=== PATIENT | male | born 1965 | race Caucasian/White ===

== ENCOUNTER 2019-03-02 03:01 | Day surgery (SDC) | payer SELFPAY ==
--- NOTE | 2019-03-02 03:04 | ER Report ---
History and Physical Time Seen By MD: 03:01 SHILO/PAULA CHIEF COMPLAINT: Abdominal pain and distention HISTORY OF PRESENT ILLNESS: 53-year-old male presents ambulatory to the ER complaining of abdominal distention and pain primarily in the upper abdomen, spreading to the left lower quadrant since morning. Patient thinks he has a bowel obstruction. Patient has no previous abdominal surgeries or previous bowel problems. His father had a history of malignant polyps and a 6 feet of his colon removed. Patient notes no blood in his stool. Patient denies diarrhea. Patient notes constipation. He's had no bowel movement for several d ays. Patient denies history of inflammatory bowel disease. Patient denies fever or chills. REVIEW OF SYSTEMS: Respiratory: No cough, no dyspnea. Cardiovascular: No chest pain, no palpitations. Gastrointestinal: As above Musculoskeletal: No back pain. Allergies: Coded Allergies: No Known Drug Allergies (Unverified , 03/02/19) Home Meds Reported Medications Ibuprofen (IBUPROFEN) 800 Mg Tablet, 1 TAB PO TID PRN for PAIN, TAB 03/02/19 Famotidine (PEPCID) 20 Mg Tablet, 20 MG PO BID, #10 TAB 03/02/19 Ciprofloxacin Hcl 500 Mg Tab (CIPRO 500 MG TAB) 500 Mg Tablet, 500 MG PO BID, #20 TAB 03/02/19 Acetaminophen With Codeine # 3 (TYLENOL WITH CODEINE #3 TABLET) 1 Each Tablet, 1 EACH PO Q4-6H PRN for PAIN, TAB 03/02/19 Phenazopyridine Hcl (PHENAZOPYRIDINE HCL) 200 Mg Tablet, 200 MG PO TID, #20 TAB 03/02/19 Reviewed Nurses Notes: Yes Old Medical Records Reviewed: Yes Constitutional Vital Sign - Last 24 Hours 03/02/19 03/02/19 03/02/19 03/02/19 03:01 03:07 03:08 03:31 Temp 97.8 Pulse ??? 67 66 Resp 16 B/P (MAP) 138/100 138/100 (113) Pulse Ox 92 91 O2 Delivery Room Air 03/02/19 03/02/19 03/02/19 03/02/19 03:37 03:46 04:00 04:01 Pulse 79 85 B/P (MAP) 136/91 (106) 132/82 (99) Pulse Ox 90 91 7/6/19 03/02/19 03/02/19 03/02/19 04:16 04:30 04:31 04:46 Pulse 69 74 70 B/P (MAP) 123/75 (91) Pulse Ox 93 92 91 03/02/19 03/02/19 03/02/19 03/02/19 04:51 05:06 05:21 05:22 Pulse 87 81 83 B/P (MAP) 129/84 (99) Pulse Ox 93 92 92 03/02/19 03/02/19 03/02/19 03/02/19 05:36 05:51 06:00 06:06 Pulse 88 91 76 B/P (MAP) 153/109 (124) Pulse Ox 92 92 91 03/02/19 06:21 Pulse 76 Pulse Ox 91 Physical Exam General Appearance: The patient is alert, has no immediate need for airway protection and no current signs of toxicity. Vital signs stable, afebrile, pulse ox normal HEENT: Pupils equal and round no injection. Oropharynx without redness or exudate Respiratory: Chest is non tender, lungs are clear to auscultation. Cardiac: regular rate and rhythm Gastrointestinal: Abdomen is firm, grossly distended, non tender, no masses, bowel sounds decreased. Musculoskeletal: Neck: Neck is supple and non tender. No lymphadenopathy Extremities have full range of motion and are non tender. Skin: No rashes or lesions. DIFFERENTIAL DIAGNOSIS: After history and physical exam differential diagnosis was considered for abdominal pain including but not limited to appendicitis, cholecystitis, gastritis and urinary tract infection. Medical Decision Making Data Points Result Diagram: 03/02/19 0330 03/02/19 0330 Laboratory Hematology Test 03/02/19 03:30 03/02/19 04:22 Red Blood Count 4.61 M/uL (4.00-5.60) Mean Corpuscular Volume 90.2 fL (80.0-96.0) Mean Corpuscular Hemoglobin 30.9 pg (26.0-33.0) Mean Corpuscular Hemoglobin Concent 34.3 g/dL (32.0-36.0) Red Cell Distribution Width 13.9 % (11.5-14.5) Mean Platelet Volume 6.9 fL (7.2-11.1) Neutrophils (%) (Auto) 81.7 % (39.4-72.5) Lymphocytes (%) (Auto) 10.4 % (17.6-49.6) Monocytes (%) (Auto) 7.2 % (4.1-12.4) Eosinophils (%) (Auto) 0.3 % (0.4-6.7) Basophils (%) (Auto) 0.4 % (0.3-1.4) Nucleated RBC Relative Count (auto) 0.0 /100WBC Neutrophils # (Auto) 11.3 K/uL (2.0-7.4) Lymphocytes # (Auto) 1.4 K/uL (1.3-3.6) Monocytes # (Auto) 1.0 K/uL (0.3-1.0) Eosinophils # (Auto) 0.0 K/uL (0.0-0.5) Basophils # (Auto) 0.1 K/uL (0.0-0.1) Nucleated RBC Absolute Count (auto) 0.00 K/uL Sodium Level 132 mmol/L (137-145) Potassium Level 3.5 mmol/L (3.5-5.0) Chloride Level 96 mmol/L (98-107) Carbon Dioxide Level 23 mmol/L (22-30) Blood Urea Nitrogen 23 mg/dl (9-21) Creatinine 1.30 mg/dl (0.66-1.25) Glomerular Filtration Rate Calc 58.0 Random Glucose 120 mg/dl (75-110) Calcium Level 9.1 mg/dl (8.4-10.2) Total Bilirubin 1.6 mg/dl (0.2-1.3) Aspartate Amino Transf (AST/SGOT) 40 U/L (0-35) Alanine Aminotransferase (ALT/SGPT) 49 U/L (0-56) Alkaline Phosphatase 95 U/L (0-126) Total Protein 6.7 g/dl (6.3-8.2) Albumin 3.9 g/dl (3.5-5.0) Amylase Level 86 U/L (0-110) Lipase 27 U/L (23-300) Urine Color Yellow Urine Clarity Clear Urine pH 5.0 pH (4.8-9.5) Urine Specific [place] 1.020 Urine Protein Negative mg/dL (NEGATIVE) Urine Glucose (UA) Negative mg/dL (NEGATIVE) Urine Ketones Negative mg/dL (NEGATIVE) Urine Blood Negative (NEGATIVE) Urine Nitrite Negative (NEGATIVE) Urine Bilirubin Negative (NEGATIVE) Urine Urobilinogen Negative mg/dL (0.2-1.9) Urine Leukocyte Esterase Negative (NEGATIVE) Urine RBC <1 /HPF (0-2/HPF) Urine WBC 1 /HPF (0-5/HPF) Urine Squamous Epithelial Cells None /LPF (</=FEW) Urine Bacteria Negative /HPF (NONE-FEW) Urine Mucus None /HPF (NONE-FEW) Chemistry Test 03/02/19 03:30 03/02/19 04:22 White Blood Count 13.9 k/uL (4.5-11.0) Red Blood Count 4.61 M/uL (4.00-5.60) Hemoglobin 14.3 g/dL (14.0-18.0) Hematocrit 41.6 % (42.0-52.0) Mean Corpuscular Volume 90.2 fL (80.0-96.0) Mean Corpuscular Hemoglobin 30.9 pg (26.0-33.0) Mean Corpuscular Hemoglobin Concent 34.3 g/dL (32.0-36.0) Red Cell Distribution Width 13.9 % (11.5-14.5) Platelet Count 268 K/uL (150-450) Mean Platelet Volume 6.9 fL (7.2-11.1) Neutrophils (%) (Auto) 81.7 % (39.4-72.5) Lymphocytes (%) (Auto) 10.4 % (17.6-49.6) Monocytes (%) (Auto) 7.2 % (4.1-12.4) Eosinophils (%) (Auto) 0.3 % (0.4-6.7) Basophils (%) (Auto) 0.4 % (0.3-1.4) Nucleated RBC Relative Count (auto) 0.0 /100WBC Neutrophils # (Auto) 11.3 K/uL (2.0-7.4) Lymphocytes # (Auto) 1.4 K/uL (1.3-3.6) Monocytes # (Auto) 1.0 K/uL (0.3-1.0) Eosinophils # (Auto) 0.0 K/uL (0.0-0.5) Basophils # (Auto) 0.1 K/uL (0.0-0.1) Nucleated RBC Absolute Count (auto) 0.00 K/uL Glomerular Filtration Rate Calc 58.0 Calcium Level 9.1 mg/dl (8.4-10.2) Total Bilirubin 1.6 mg/dl (0.2-1.3) Aspartate Amino Transf (AST/SGOT) 40 U/L (0-35) Alanine Aminotransferase (ALT/SGPT) 49 U/L (0-56) Alkaline Phosphatase 95 U/L (0-126) Total Protein 6.7 g/dl (6.3-8.2) Albumin 3.9 g/dl (3.5-5.0) Amylase Level 86 U/L (0-110) Lipase 27 U/L (23-300) Urine Color Yellow Urine Clarity Clear Urine pH 5.0 pH (4.8-9.5) Urine Specific [place] 1.020 Urine Protein Negative mg/dL (NEGATIVE) Urine Glucose (UA) Negative mg/dL (NEGATIVE) Urine Ketones Negative mg/dL (NEGATIVE) Urine Blood Negative (NEGATIVE) Urine Nitrite Negative (NEGATIVE) Urine Bilirubin Negative (NEGATIVE) Urine Urobilinogen Negative mg/dL (0.2-1.9) Urine Leukocyte Esterase Negative (NEGATIVE) Urine RBC <1 /HPF (0-2/HPF) Urine WBC 1 /HPF (0-5/HPF) Urine Squamous Epithelial Cells None /LPF (</=FEW) Urine Bacteria Negative /HPF (NONE-FEW) Urine Mucus None /HPF (NONE-FEW) Urinalysis Test 03/02/19 04:22 Urine Color Yellow Urine Clarity Clear Urine pH 5.0 pH (4.8-9.5) Urine Specific [place] 1.020 Urine Protein Negative mg/dL (NEGATIVE) Urine Glucose (UA) Negative mg/dL (NEGATIVE) Urine Ketones Negative mg/dL (NEGATIVE) Urine Blood Negative (NEGATIVE) Urine Nitrite Negative (NEGATIVE) Urine Bilirubin Negative (NEGATIVE) Urine Urobilinogen Negative mg/dL (0.2-1.9) Urine Leukocyte Esterase Negative (NEGATIVE) Urine RBC <1 /HPF (0-2/HPF) Urine WBC 1 /HPF (0-5/HPF) Urine Squamous Epithelial Cells None /LPF (</=FEW) Urine Bacteria Negative /HPF (NONE-FEW) Urine Mucus None /HPF (NONE-FEW) EKG/Imaging Imaging Results: CT scan of the abdomen and pelvis with IV contrast was obtained. The results of the study are CT of the abdomen and pelvis with contrast: Indication: Abdominal pain and distention. Technique: Helical CT was performed through the abdomen and pelvis following IV contrast enhancement with 75 cc of Isovue-370. Multiplanar reconstructions are reviewed. One of the following dose optimization techniques was utilized in the perfo rmance of this exam: Automated exposure control; adjustment of the mA and/or kV according to the patient's size; or use of an iterative reconstruction technique. Specific details can be referenced in the facility's radiology CT exam operational policy. Comparison: None available. Lower lung mejia: There is minimal linear atelectasis at the bases. No consolidation or pleural effusion is identified. Liver: Normal in size, shape, and density. The venous structures appear unremarkable. Gallbladder/biliary tree: The gallbladder is normal in size and homogeneous in density. The bile ducts are not dilated. Pancreas: Normal in size, shape, and density. Spleen: Normal in size, shape, and density. Adrenal glands: Within normal limits. Kidneys/urinary bladder: There is a 3 mm obstructing calculus in the distal left ureter. There is also a 4 mm nonobstructing calculus in the left kidney. There is mild dilatation of the left ureter and intrarenal collecting structures. However, there is a moderate amount of fluid around the left kidney and left ureter, consistent with calyceal rupture. The left kidney is otherwise unremarkable. The right kidney and ureter appear normal. There are no signs of obstruction on the right. The bladder lumen appears homogeneous and unremarkable. Intestinal structures: There is moderate amount of stool throughout the colon. There are no definite signs of intestinal obstruction or focal inflammatory changes. Pelvis: The prostate appears mildly enlarged. Otherwise unremarkable. Aorta and vascular structures: There is mild atherosclerotic calcification in the aorta. There is no evidence of aneurysm. Ascites or fluid collections: No evidence of intraperitoneal fluid. Skeletal structures: There are mild degenerative changes in the spine. No acute skeletal deformity is clearly identified. Impression: There is a 3 mm obstructing calculus in the distal left ureter. There is mild dilatation of the left ureter and intrarenal collecting structures. However, there is a moderate amount of fluid around the left kidney and left ureter, consistent with calyceal rupture. The study was read by the radiologist. I viewed the images myself on the PACS system. ED Course/Re-evaluation Clinical Indication for ER IV: Hydration, IV Access ED Course Patient was admitted to an examination room. H&P was done. The differential diagnosis was considered. Patient with abdominal distention. He notes no fever, chills, no dysuria, no hematuria. Patient never had any abdominal surgery. Patient thinks he is constipation or bowel obstruction. Patient has been passing some gas. Patient notes no fever or chills. Peripheral IV was established. Patient was medicated with Zofran and fentanyl. He was sent for CT with contrast. His laboratory studies return. Elevated white blood cell count mildly elevated BUN/creatinine. His sodium is 132. A CT scan shows a lot of fat stranding around the left kidney. Radiology is calling a calyceal rupture. There is a 3 mm stone at the left UVJ. 03/02/2019 5:08:10 am case discussed with Dr. Smith urologist on-call, who ad vises the patient needs to go to the OR for stent placement and removal of the stone to depressurize his kidney. Decision to Disposition Date: Mar 02, 2019 Decision to Disposition Time: 04:47 Depart Departure Latest Vital Signs Vital Signs Date Time Temp Pulse Resp B/P (MAP) Pulse Ox O2 Delivery O2 Flow Rate FiO2 03/02/19 06:21 76 91 03/02/19 06:00 153/109 (124) 03/02/19 03:07 97.8 16 Room Air Impression: Primary Impression: Left ureteral calculus Additional Impression: Dilation of renal maren Condition: Improved Disposition: ADMIT FROM ER TO OR Problem Qualifiers FLACA MA DO Mar 02, 2019 03:04
[2019-03-02] MEDS ORDERED: NS(*) 0.9% 1000 ML BAG 1,000 ML IV ONE (03:18)
[2019-03-02] MEDS ORDERED: fentaNYL CITR 100 MCG/2 ML AMP IVP ONE (03:20)
[2019-03-02] MEDS ORDERED: ONDANSETRON 4 MG/2 ML VIAL IVP ONE (03:20)
[2019-03-02 03:49] LABS: PLATELET COUNT, AUTOMATED 268 K/uL (150-450)
[2019-03-02] MEDS ORDERED: IOPAMIDOL 76% 100 ML INFUS BTL 100 ML ONE (03:51)
--- NOTE | 2019-03-02 04:45 | RADIOLOGY IMAGING REPORT ---
FACILITY: [facility] [place] PATIENT NAME: Brian Weiner : 1965 MR: [id number] V: [id number] EXAM DATE: ORDERING PHYSICIAN: FLACA MA TECHNOLOGIST: Location: [facility] Patient: Brian Weiner : 1965 Visit/Account:[id number] Date of Sevice: 03/02/2019 CT of the abdomen and pelvis with contrast: Indication: Abdominal pain and distention. Technique: Helical CT was performed through the abdomen and pelvis following IV contrast enhancement with 75 cc of Isovue-370. Multiplanar reconstructions are reviewed. One of the following dose optimization techniques was utilized in the performance of this exam: Autom ated exposure control; adjustment of the mA and/or kV according to the patient's size; or use of an i terative reconstruction technique. Specific details can be referenced in the facility's radiology CT exam operational policy. Comparison: None available. Lower lung mejia: There is minimal linear atelectasis at the bases. No consolidation or pleural effu sophia is identified. Liver: Normal in size, shape, and density. The venous structures appear unremarkable. Gallbladder/biliary tree: The gallbladder is normal in size and homogeneous in density. The bile duct s are not dilated. Pancreas: Normal in size, shape, and density. Spleen: Normal in size, shape, and density. Adrenal glands: Within normal limits. Kidneys/urinary bladder: There is a 3 mm obstructing calculus in the distal left ureter. There is als o a 4 mm nonobstructing calculus in the left kidney. There is mild dilatation of the left ureter and intrarenal collecting structures. However, there is a moderate amount of fluid around the left kidney and left ureter, consistent with calyceal rupture. The left kidney is otherwise unremarkable. The right kidney and ureter appear normal. There are no signs of obstruction on the right. The bladder lumen appears homogeneous and unremarkable. Intestinal structures: There is moderate amount of stool throughout the colon. There are no definite signs of intestinal obstruction or focal inflammatory changes. Pelvis: The prostate appears mildly enlarged. Otherwise unremarkable. Aorta and vascular structures: There is mild atherosclerotic calcification in the aorta. There is no evidence of aneurysm. Ascites or fluid collections: No evidence of intraperitoneal fluid. Skeletal structures: There are mild degenerative changes in the spine. No acute skeletal deformity is clearly identified. Impression: There is a 3 mm obstructing calculus in the distal left ureter. There is mild dilatation of the left ureter and intrarenal collecting structures. However, there is a moderate amount of fluid around the left kidney and left ureter, consistent with calyceal rupture. Report Dictated By: Mario Alberto Palumbo MD at 03/02/2019 4:27 AM Report E-Signed By: Mario Alberto Palumbo MD at 03/02/2019 4:39 AM WSN:[id number]
[2019-03-02] MEDS ORDERED: FAMOTIDINE(*) 20MG/50ML PREMIX 50 ML IVPB ONE (06:18)
[2019-03-02] MEDS ORDERED: NORMOSOL R SOLN(*) 1000 ML BAG 1,000 ML IV ONE (06:18)
[2019-03-02] MEDS ORDERED: fentaNYL CITR 250 MCG/5 ML AMP ONE (07:16)
[2019-03-02] MEDS ORDERED: DEXAMETHASONE SOD PHOS 10MG/ML ONE (07:17)
[2019-03-02] MEDS ORDERED: ONDANSETRON 4 MG/2 ML VIAL ONE (07:17)
[2019-03-02] MEDS ORDERED: LIDOCAINE MPF 1% 5 ML VIAL ONE (07:17)
[2019-03-02] MEDS ORDERED: PROPOFOL EMUL(*) 10MG/ML 20 ML 20 ML ONE (07:17)
[2019-03-02] MEDS ORDERED: KETAMINE HCL-NS 50 MG/5 ML SYR ONE (07:18)
[2019-03-02] MEDS ORDERED: ceFAZolin 1 GM VIAL ONE (07:24)
[2019-03-02] MEDS ORDERED: KETOROLAC 30 MG/ML VIAL ONE (08:01)
[2019-03-02] MEDS ORDERED: PHEN200T32 PO (08:46)
[2019-03-02] MEDS ORDERED: ACET-3017 PO (08:46)
[2019-03-02] MEDS ORDERED: FAMO20TA28 PO (08:47)
[2019-03-02] MEDS ORDERED: CIPR-344 PO (08:47)
[2019-03-02] MEDS ORDERED: IBUP800T37 PO (08:48)
[2019-03-02 09:15] VITALS: BP 129/92
[2019-03-02 09:30] VITALS: BP 133/91
[2019-03-02 09:37] VITALS: BP 129/96
[2019-03-02 09:38] VITALS: BP 130/91
--- NOTE | 2019-03-02 09:40 | RADIOLOGY IMAGING REPORT ---
[place]AC[place] [facility] [place]IENT NAME: Brian Weiner : 1965 MR: [id number] V: [id number] EXAM DATE: ORDERING PHYSICIAN: CHANTEL SEAMAN TECHNOLOGIST: Location: [facility] Patient: Brian Weiner : 1965 Visit/Account:[id number] Date of Sevice: 03/02/2019 ADDENDUM #1 ADDENDUM: Fluoroscopy time: 0.11 minutes. 13 images. Report Dictated By: Narayan Colón MD at 03/02/2019 10:51 AM Report E-Signed By: Narayan Colón MD at 03/02/2019 10:52 AM ORIGINAL REPORT Retrograde urethrocystography images Indication: Left-sided kidney stone and stent placement Comparison: CT dated March 02, 2019. Findings: Multiple fluoroscopic images provided for review. There is opacification of the left ureter with active extravasation of contrast adjacent to the dista l left renal pelvis/proximal ureter Correlate with findings at time of imaging. IMPRESSION: 1. Fluoroscopic images of retrograde urethrocystography as above. Report Dictated By: Narayan Colón MD at 03/02/2019 8:31 AM Report E-Signed By: Narayan Colón MD at 03/02/2019 9:34 AM WSN:[id number]
--- NOTE | 2019-03-02 09:51 | NUR ---
0912 MOVED TO PHASE 2 CHARTING, NO PHYSICAL TRANSFER, ASSESSMENT UNREMARKABLE 929 VSS 0937 ORTHOSTATICS DONE, STABLE, DENIES DIZZINESS, UP TO VOID, STEADY ON FEET, NOTHING CAUGHT IN STRAINER 0945 BACK TO BED TO CONTINUE RESTING, DECLINES FOOD AT THIS TIME. SATES FLANK PAIN FROM BEFORE SURGERY RELIEVED
--- NOTE | 2019-03-02 10:29 | NUR ---
1010 PT READY TO DRESS, STEADY ON FEET 1015 REASSESSED, UNREMARKABLE, IV OUT, PRESSURE DRESSING APPLIED 1020 OUT TO CAR ON FOOT ALONG WITH PARTNER JESSA AND Je CRISTINA RN NO NEW QUESTIONS REGARDING D/C INSTRUCTIONS. PT PLANS TO RETURN MONDAY FOR ESWL PROCEDURE WITH DR. SEAMAN. ALL BELONGINGS WITH PT
--- NOTE | 2019-03-02 22:23 | OPERATIVE REPORT 1 ---
EVENT DATE: March 02, 2019 SURGEON: Placido Smith MD ANESTHESIOLOGIST: Jimmy Vincent MD ANESTHESIA: General PREOPERATIVE DIAGNOSES 1. Left ureteral lithiasis with pyelotubular backflow. 2. Severe ureterorenal colic. 3. Nausea and vomiting. 4. Left renal lithiasis. POSTOPERATIVE DIAGNOSES 1. Left ureteral lithiasis with pyelotubular backflow. 2. Severe ureterorenal colic. 3. Nausea and vomiting. 4. Left renal lithiasis. PROCEDURES PERFORMED 1. Cystourethroscopy. 2. Multiple left ureteral pyelograms. 3. Attempted extraction of left ureteral stone. 4. Manipulation, left ureteral stone. 5. Placement of left ureteral stent 4.8 x 28 cm PercuFlex Plus. DESCRIPTION OF PROCEDURE Patient was prepped and draped in the extended lithotomy position. The 21 panendoscope admitted through the urethra into the bladder. The urethra was normal. Prostate was normal. Bladder was normal and showed 2 to 3+ trabeculation. Trigone and ureteral orifices were normal. There was no inflammation about the left ureteral orifice. No stones were visible in the bladder. An 8 cone tip was placed in the left ureteral orifice, but only would allow approximately one half of the tip of the catheter to be introduced into the orifice. Contrast was introduced and passed up the left collecting system. The x-ray showed evidence of the pyelotubular backflow and leakage of urine. Attempt to pass the extractor was unsuccessful. The access catheter was placed and then the 0.038 guidewire. Attempts to pass the 6-Portuguese x 26 cm PercuFlex Plus was unsuccessful. The 4.8 x 28 cm PercuFlex catheter passed up the left collecting system without any difficulty. The x-ray confirmed full curl in the kidney as well as the bladder. At conclusion of the procedure, no stones were visible in the bladder. After the additional ureteral pyelograms, there was marked efflux of carlos-type urine with some bloody matter particles passing through the left ureteral orifice. Patient tolerated the procedure satisfactorily and returned to the recovery room in satisfactory condition. The bladder was drained at conclusion of the procedure. This is a 53-year-old white male complaining of acute onset of left ureterorenal colic on the 28 of February, this past a.m. Patient had intermittent severe pain. Patient arrived in the Emergency Room this last p.m., and evaluation showed left distal ureteral stone with associated high-grade obstruction and pyelotubular backflow. Patient also has approximately a 1 cm stone in his left kidney. Options were discussed with the patient. He was agreeable to evaluation and therapy with removal of the ureteral stone if possible and stent placement. See operative note for details. Patient will be ready for discharge home when alert and functional. Force fluids, 12 glasses of water per day. Activities are as tolerated. Plan followup this coming Monday, the February. He is to call for an appointment. He is to strain all his urine. He is sent home with strainers. He is to continue his usual medications. A copy of instructions was given to the patient. Patient was given my personal cell phone number to contact me if he has any problems or to the Emergency Room if he is unable to reach me. Patient will be discharged home on Cipro, Pepcid, Motrin, and Tylenol No. 3 therapy in addition to his usual medications. Patient is to strain all his urine and is sent home with strainers. PRUDENCIO
== END 2019-03-02 09:12 | disposition home or self-care (01) ==
LOC: ER 03:06 → OR 06:21
DX: N13.2 Hydronephrosis with renal and ureteral calculous obstruction (principal); N23 Unspecified renal colic; K59.00 Constipation, unspecified; Z80.0 Family history of malignant neoplasm of digestive organs
CPT/HCPCS: 52330; 52332; 74177; 74420; 81001; 82150; 83690; 85025; C1758; C1769; C1894; C2617; J0690; J1100; J1885; J2001; J2405; J2704; J3010; J3490; J7030; Q9967; 82040; 82247; 82310; 82374; 82435; 82565; 82947; 84075; 84132; 84155; 84295; 84450; 84460; 84520

== ENCOUNTER 2019-03-04 11:40 | Day surgery (SDC) | payer SELFPAY ==
[~2019-03-04] VITALS: Ht 185.4 cm; Wt 87.5 kg
[~2019-03-04 11:40] MED LIST: ACET-3017 PO; CIPR-344 PO; FAMO20TA28 PO; FAMOTIDINE 20 MG TAB PO ONE; IBUP800T37 PO; LIDOCAINE/SOD BICARB 8.4% SYR ID ONE; MIDAZOLAM 2 MG/2 ML VIAL IVP PRN; NORMOSOL R SOLN(*) 1000 ML BAG 1,000 ML IV PRN; PHEN200T32 PO; cefTRIAXone(*) 1 GM VIAL 1 GM in NS(*) 0.9% 100 ML MINI-BAG 100 ML IVPB ONE
[2019-03-04] MEDS ORDERED: VITA100014 PO (12:53)
[2019-03-04] MEDS ORDERED: CALC-852 PO (12:53)
[2019-03-04] MEDS ORDERED: MACA500C2 PO (12:53)
[2019-03-04] MEDS ORDERED: fentaNYL CITR 100 MCG/2 ML AMP ONE ×2 (12:54→16:13)
[2019-03-04 13:00] VITALS: BP 145/102
[2019-03-04] MEDS ORDERED: IOPAMIDOL 20 ML VIAL IT ONE (13:07)
--- NOTE | 2019-03-04 13:49 | RADIOLOGY IMAGING REPORT ---
FACILITY: [facility] [place] PATIENT NAME: Brian Weiner : 1965 MR: [id number] V: [id number] EXAM DATE: ORDERING PHYSICIAN: CHANTEL SEAMAN TECHNOLOGIST: Location: [facility] [place] Patient: Brian Weiner : 1965 Visit/Account:[id number] Date of Sevice: 03/04/2019 Exam type: KUB SINGLE VIEW ABDOMEN History: stone placement. Comparison: CT March 02, 2019. Findings: There is a left ureteral stent in place. Approximately 3 mm calcination projects over the mid left k idney. An additional ovoid calcification projects over the left-sided the mid pelvis adjacent to the ureteral stent. This could represent a distal left ureteral calculus as seen on the recent CT versu s a phlebolith as are numerous calcified phleboliths are noted in the pelvis IMPRESSION: 1. As above Report Dictated By: Judi Juan MD at 03/04/2019 1:41 PM Report E-Signed By: Judi Juan MD at 03/04/2019 1:43 PM WSN:[id number]
[2019-03-04] MEDS ORDERED: GLYCOPYRROLATE 0.2MG/ML 1 ML INJ ONE (13:57)
[2019-03-04 16:45] VITALS: BP 131/89
--- NOTE | 2019-03-04 16:46 | RADIOLOGY IMAGING REPORT ---
FACILITY: [facility] [place]IENT NAME: Brian Weiner : 1965 MR: [id number] V: [id number] EXAM DATE: ORDERING PHYSICIAN: CHANTEL SEAMAN TECHNOLOGIST: Location: [facility] [place] Patient: Brian Weiner : 1965 Visit/Account:[id number] Date of Sevice: 03/04/2019 Exam: C-ARM FLUORO 1 HR Indication: URETERAL STONE, RAD Comparison: 01/31/2019 Findings: Fluoroscopy is provided for left retrograde ureteroscopy and stent placement. Fluoroscopy time 0.02 minutes DOSE: Air kerma was 2.79 mGy. IMPRESSION: Procedural fluoroscopy Report Dictated By: Jeremy Guerra at 03/04/2019 4:39 PM Report E-Signed By: Jeremy Guerra at 03/04/2019 4:40 PM WSN:[email or web address]
[2019-03-04 17:00] VITALS: BP 130/88
[2019-03-04] MEDS ORDERED: ACETAMIN/CODEINE #3 300-30 MG PO ONE (17:07)
[2019-03-04 17:15] VITALS: BP 144/94
[2019-03-04 17:37] VITALS: BP 140/90
[2019-03-04 17:38] VITALS: BP 126/97
--- NOTE | 2019-03-05 03:25 | OPERATIVE REPORT 1 ---
EVENT DATE: March 04, 2019 SURGEON: Placido Smith MD ANESTHESIOLOGIST: Bennie Brice MD ANESTHESIA: General. PREOPERATIVE DIAGNOSES 1. Left ureterolithiasis. 2. Left renal lithiasis. POSTOPERATIVE DIAGNOSES 1. Left ureterolithiasis. 2. Left renal lithiasis. PROCEDURE PERFORMED 1. Cystourethroscopy. 2. Removal of left indwelling ureteral stent. 3. Left ureterorenoscopy. 4. Extraction of left distal ureteral stone. 5. Left external stent placement and removal. 6. Left extracorporeal shockwave lithotripsy of one stone in the left kidney, approximately 1 cm. DESCRIPTION OF PROCEDURE The patient was prepped and draped in the extended lithotomy position. The 21 panendoscope admitted through the urethra into the bladder. The bladder was visualized. No stones were visible in the bladder. The left ureteral stent was removed. Again, inspection of the bladder showed no urolithiasis. The ureterorenoscope was passed up the left ureter, and approximately 1 inch to 2 inches cephalad, the left distal ureteral stone was encountered. It appeared to be small enough to remove. It was fairly solid in appearance. The helical basket extractor was placed, and the stone was engaged without any difficulty and subsequently extracted intact. The stone will be sent for analysis and will be given to the patient. The left ureteral stent, external, was placed without any difficulty. The external stent was secured to urethral Babcock and contrast. The patient was transferred to the stone treatment unit. After positioning, the stone was treated with a total of 3000 shocks progressing for low to high KV fairly slowly. The stone appeared to satisfactorily disintegrate. Introduction of contrast media appeared to show resolution. The external stent and Babcock were removed at conclusion of the procedure. Patient tolerated the procedure satisfactorily and returned to the recovery room in satisfactory condition. This is a 53-year-old white male complaining of left ureterorenal colic, severe colic and nausea and vomiting. He had been seen this past Monday in the office. The problem started early a.m. on the February. Patient requested treatment, and he subsequently had evaluation and a stent placed. He has been followed up for evaluation and therapy. See operative note for details. Patient will be ready for discharge home when alert and functional, to force fluids, 2L per day. Activities are as tolerated. He is to strain all his urine. He was sent home with a strainer. He is to percuss his left kidney frequently to facilitate passage of stone particles. He is to continue his usual medications. Copies of instructions for renal percussion were given to the patient. PRUDENCIO
== END 2019-03-04 16:47 | disposition home or self-care (01) ==
LOC: OR 11:40
DX: N20.2 Calculus of kidney with calculus of ureter (principal)
CPT/HCPCS: 50590; 52352; 74018; 76000; A4338; C1758; C1769; C1894; J0696; J3010; J3490; Q9966